=== PATIENT | male | born 1980 | race Caucasian/White ===

== ENCOUNTER → 2023-07-29 07:21 | Outpatient (REF) | payer BC, SELFPAY | LOC: MRI 07:21 | PROVIDERS: ATTENDING PHYSICIAN Chiropractor; FAMILY PHYSICIAN Nurse Practitioner | DX: M50.120 Mid-cervical disc disorder, unspecified level (principal) | CPT/HCPCS: 72141 ==

== ENCOUNTER → 2023-11-01 13:10 | Outpatient (REF) | payer BC, SELFPAY | LOC: CLAB 13:10 | PROVIDERS: ATTENDING PHYSICIAN Surgery | DX: Z11.51 Encounter for screening for human papillomavirus (HPV) (principal) | CPT/HCPCS: 87624; 88112 ==